=== PATIENT | male | born 1970 | race Two or more races ===

== ENCOUNTER 2017-10-20 15:22 | Outpatient (CLI) | payer OTHER | END 2017-10-20 17:00 | disposition home or self-care (01) | LOC: RAD 15:22 | DX: M54.5 Low back pain (principal) ==

== ENCOUNTER 2019-04-22 07:13 | Day surgery (SDC) | payer OTHER ==
[~2019-04-22 07:13] MED LIST: AMBIEN10 MG PO
[2019-04-22] MEDS ORDERED: COLACE100 MG PO (09:26)
== END 2019-04-22 16:21 | disposition home or self-care (01) ==
LOC: CIR.AMB 07:13
DX: K64.5 Perianal venous thrombosis (principal); K64.4 Residual hemorrhoidal skin tags; K64.8 Other hemorrhoids